=== PATIENT | female | born 2000 | race Caucasian/White ===

== ENCOUNTER 2024-03-08 22:13 | Emergency (ER) | payer OTHER | END 2024-03-09 00:12 | disposition home or self-care (01) | LOC: JP.ED 22:13 | DX: F32.9 Major depressive disorder, single episode, unspecified (principal); Z86.16 Personal history of COVID-19; Z79.899 Other long term (current) drug therapy; Z88.0 Allergy status to penicillin | CPT/HCPCS: 99283 ==